=== PATIENT | female | born 1995 | race Caucasian/White ===

== ENCOUNTER 2017-03-29 14:00 | Emergency (ER) | payer OTHER ==
[2017-03-29 14:05] VITALS: BP 128/88
--- NOTE | 2017-03-29 14:42 | ED Physician Documentation ---
History of Present Illness - Stated complaint Stated Complaint: LT LEG INJ - Chief complaint Chief Complaint: Trauma Ext - Additonal information Additional information: hx from pt 21 female denies preg AD was helping carry a 350 lb transmitter and walking backward and fell and dropped the equipment in her distal L tib fib pain and swelling ROMINA sent to ER Review of Systems : denies: Now EGA Musculoskeletal: reports: Extremity pain, Extremity swelling PD PAST MEDICAL HISTORY - Past Medical History Past Medical History: No - Past Surgical History Past Surgical History: Yes HEENT: Tonsil/Adenoidectomy - Present Medications Home Medications: Ambulatory Orders Medication Instructions Recorded Confirmed No Known Home Medications [No 03/29/17 03/29/17 Known Home Medications] - Allergies Allergies/Adverse Reactions: Allergies Allergy/AdvReac Type Severity Reaction Status Date / Time No Known Drug Allergies Allergy Verified 03/29/17 14:02 - Social History Does the pt smoke?: No Smoking Status: Never smoker Does the pt drink ETOH?: Yes Does the pt have substance abuse?: No - Immunizations Immunizations are current?: Yes - POLST Patient has POLST: No PD ED PE NORMAL - Vitals Vital signs reviewed: Yes - Extremities Extremities: Other (LLE TTP distal tib fib s deformity but with localized swelling, MSV intact) Results - Vitals Vitals: Vital Signs - 24 hr 03/29/17 14:02 Temperature 36.5 C Heart Rate 80 Respiratory 16 Rate Blood Pressure 128/88 H O2 Saturation 100 Oxygen O2 Source Room air - Rads (name of study) tib fib Radiology: See rad report (neg) Departure - Departure Disposition: 01 Home, Self Care Clinical Impression: Contusion of leg, left Qualifiers: Encounter type: initial encounter Qualified Code(s): S80.12XA - Contusion of left lower leg, initial encounter Condition: Good Instructions: ED Contusion Lower Ext Follow-Up: [facility] [Provider Group] Comments: Thankfully no fracture was seen on xray. But you have soft tissue damage. Recommend ice motrin elevation and using crutches to rest the affected area for at least 3 days. No PT or running for two weeks Follow up with your command for other duty status If your leg still hurts too much to walk on it in 2 weeks, please follow up at [facility] for repeat xrays Forms: Activity restrictions
--- NOTE | 2017-03-29 15:21 | XRAY Preliminary Report ---
Exam: XR TIB/FIB LT IMPRESSION: No fracture [facility] SITE ID: [id number]
--- NOTE | 2017-03-29 15:24 | XRAY Report ---
EXAM: LEFT TIBIA/FIBULA RADIOGRAPHY EXAM DATE: 03/29/2017 02:56 PM. CLINICAL HISTORY: Left leg injury. COMPARISON: None. TECHNIQUE: 2 views. FINDINGS: Bones: Normal. No fracture or bone lesion. Joints: The visualized knee and ankle joints are normal. No effusions. Soft Tissues: Normal. No soft tissue swelling. IMPRESSION: No fracture [facility] Referring Provider Line: [phone] SITE ID: [id number]
== END 2017-03-29 16:30 | disposition home or self-care (01) ==
LOC: ED 14:00
DX: S80.12XA Contusion of left lower leg, initial encounter (principal); W20.8XXA Other cause of strike by thrown, projected or falling object, initial encounter; Y92.139 Unspecified place military base as the place of occurrence of the external cause; Y99.1 Military activity
CPT/HCPCS: 99283